=== PATIENT | male | born 1990 | race Caucasian/White ===

== ENCOUNTER 2017-01-27 15:51 | Emergency (ER) | payer OTHER ==
[2017-01-27 16:15] LABS: BASOPHIL 0.4 % (0-2); EOSINOPHIL 0.8 % (0-5); HGB 16.3 g/dl (13.2-18.0); LYMPHOCYTE 20.1 % (15-48); MCH 33.7 pg (25.0-31.0); MCHC 34.7 g/dL (32.0-36.0); MCV 97.1 fL (78.0-100.0); MONOCYTE 7.2 % (0-12); NEUTROPHIL 71.5 % (41-80); PLT 152 K/uL (150-400); RBC 4.84 M/uL (4.70-6.00); RDW 13.2 % (11.5-14.0); WBC 8.5 K/uL (4.0-10.5)
[2017-01-27 16:28] LABS: ALBUMIN 4.3 g/dL (3.5-5.0); BILIRUBIN - TOTAL 0.4 mg/dL (0.1-1.0); CREATININE 0.7 mg/dL (0.7-1.2); GLOBULIN (CALCULATION) 2.8 g/dL (2.2-4.2); POTASSIUM 4.2 mmol/L (3.5-5.1); TOTAL PROTEIN 7.1 g/dL (6.4-8.3)
[2017-01-27 16:37] LABS: ALCOHOL (ETOH) MEDICAL NONE DETECTED; SALICYLATE 3 ug/mL (0-300)
[2017-01-27 17:30] LABS: AMPHETAMINES NEGATIVE (NEGATIVE); BARBITURATES NEGATIVE (NEGATIVE); BENZODIAZEPINES POSITIVE (NEGATIVE); COCAINE NEGATIVE (NEGATIVE); MARIJUANA (THC) POSITIVE (NEGATIVE); METHADONE NEGATIVE (NEGATIVE); TRICYCLIC ANTIDEPRESSANT NEGATIVE (NEGATIVE)
[2017-01-27 17:33] LABS: BILIRUBIN NEGATIVE (NEGATIVE); BLOOD 3+ Ery/uL (NEGATIVE); CLARITY CLEAR (CLEAR); COLOR YELLOW (YELLOW); GLUCOSE (U) NORMAL (NORMAL); KETONE (U) NEGATIVE (NEGATIVE); LEUKOCYTES NEGATIVE Leu/uL (NEGATIVE); NITRITE NEGATIVE (NEGATIVE); PROTEIN NEGATIVE (NEGATIVE); SPECIFIC GRAVITY <=1.005 (1.001-1.030); UROBILINOGEN 0.2 mg/dL (0.2-1.0)
[2017-01-27 17:52] LABS: BACTERIA TRACE; SQUAMOUS EPITHELIAL CELLS RARE; URINARY WBC RARE
== END 2017-01-27 19:15 | disposition home or self-care (01) ==
LOC: FER 15:51
PROVIDERS: Emergency Medicine
DX: T40.601A Poisoning by unspecified narcotics, accidental (unintentional), initial encounter (principal); R41.82 Altered mental status, unspecified; F19.10 Other psychoactive substance abuse, uncomplicated; F17.210 Nicotine dependence, cigarettes, uncomplicated
CPT/HCPCS: 36415; 80053; 80305; 81001; 85025; G0480; J2310